=== PATIENT | female | born 1940 | race Caucasian/White ===

== ENCOUNTER 2020-10-25 15:16 | Outpatient (REF) | payer MEDICARE, SELFPAY ==
[2020-10-25 15:49] LABS: MANUAL DIFF FLAG NO
[2020-10-25 15:53] LABS: Basophils Percent Auto 0.9 % (0-2); Eosinophils Absolute Auto 0.1 X10*3/uL (0.0-0.4); Eosinophils Percent Auto 1.9 % (0-4); Hematocrit 40.2 % (37-47); Hemoglobin 12.6 g/dl (12.0-16.0); Imm Gran Abs Auto 0.01 X10*3/uL (0.00-0.03); Imm Gran Pct Auto 0.2 % (0.0-0.4); Lymphocytes Percent Auto 20.4 % (20-40); Mean Corpuscular HGB Conc 31.3 g/dl (31.0-35.0); Mean Corpuscular Hemoglobin 31.1 pg (27.0-33.0); Mean Corpuscular Volume 99.3 fL (80-98); Mean Platelet Volume 10.5 fL (9.4-12.3); Monocytes Absolute Auto 0.3 X10*3/uL (0.1-1.2); Monocytes Percent Auto 7.1 % (2-11); Neutrophils Absolute Auto 3.2 X10*3/uL (2.0-8.3); Neutrophils Percent Auto 69.5 % (45-73); Platelet Count 192 X10*3/uL (160-400); Red Blood Count 4.05 X10*6/uL (4.20-5.50); Red Cell Distribution Width 12.8 % (11.0-16.0); White Blood Count 4.7 X10*3/uL (4.8-10.8)
== END 2020-10-25 15:17 | disposition home or self-care (01) ==
LOC: HO.LAB 15:16
PROVIDERS: PCP Family Medicine; Visit Provider Family Medicine
DX: K59.00 Constipation, unspecified (principal); R19.5 Other fecal abnormalities
CPT/HCPCS: 36415; 82378; 85025

== ENCOUNTER 2020-10-26 09:46 | Outpatient (REF) | payer MEDICARE, MEDICAID, SELFPAY ==
--- NOTE | ~2020-10-26 | CT_ITS ---
EXAMINATION: CT ABDOMEN AND PELVIS WITHOUT CONTRAST CLINICAL INFORMATION: 3 week history of constipation and rectal pressure. Rule out obstruction. COMPARISON: Previous CT of the abdomen and pelvis June 2015 TECHNIQUE: Multidetector volumetric imaging was performed from the superior aspect of the liver through the pubic symphysis. Sagittal and coronal reformatted images were obtained on the technologist's workstation. This CT examination was performed using dose optimization techniques as appropriate, variously including the following: *Automated exposure control *Adjustment of mA and/or kV according to patient size (this includes techniques or standardized protocols for targeted exams where dose is matched to indication/reason for exam; i.e. extremities or head) *Use of iterative reconstruction technique DLP: 238 mGy-cm FINDINGS: LUNG BASES: The visualized lung bases are clear. There is a small pericardial effusion. LIVER, GALLBLADDER, AND BILIARY TREE: The liver is normal in size, shape, and attenuation. No focal hepatic lesion or biliary ductal dilatation is present. The gallbladder is 9 identified with certainty. The gallbladder may be contracted axial image 35 series 3. There is no biliary duct dilatation. PANCREAS: Unremarkable. SPLEEN: Unremarkable. ADRENAL GLANDS: Unremarkable. KIDNEYS AND URETERS: As a small stone seen in the lower pole of the right kidney. There is question of a small stone versus cortical calcification in the lower pole the left kidney. There is mild dilatation of both renal pelvises. No calyceal or ureteral dilatation is seen. This is similar to previous exam. BLADDER: Not optimally distended and not evaluated. GASTROINTESTINAL TRACT: There is a large amount of stool seen in the colon suggestive of constipation. No dilated loops of bowel to suggest obstruction are seen. There is diverticulosis of the distal colon. No evidence of diverticulitis is seen. ABDOMINAL WALL: No significant hernia is appreciated. LYMPH NODES: Normal. VASCULAR: Unremarkable. PELVIC VISCERA: Unremarkable. OSSEOUS STRUCTURES: There is spondylolisthesis and degenerative disc disease at L5-S1 that is stable. There is a question of left-sided L5 pars defect. There is degenerative disc disease at L3-L4 and L4-L5. CT/CT abdomen pelvis wo con IMPRESSION: Severe constipation. Diverticulosis of the colon. No evidence of diverticulitis. Small right renal stone.
== END 2020-10-26 09:47 | disposition home or self-care (01) ==
LOC: HO.CT 09:46
PROVIDERS: PCP Family Medicine; Visit Provider Family Medicine
DX: R19.7 Diarrhea, unspecified (principal); R63.0 Anorexia
CPT/HCPCS: 74176

== ENCOUNTER → 2021-04-08 11:22 | Outpatient (REF) | payer MEDICARE, MEDICAID, SELFPAY ==
--- NOTE | 2021-04-08 11:29 | HM_ITS ---
Conclusion: 1. Baseline numbers normal sinus rhythm with average heart rate 60 beats per minute. 2. No significant pauses noted 3. Frequent short runs of supra ventricle tachycardia with longest episode of 15 beats 4. Total of 4500 to PACs accounting for 1.8% of total burden account for occasional PACs 5. No patient reported events MTDD
== END ==
LOC: HO.CARD 11:22
PROVIDERS: Visit Provider Family Medicine
DX: R00.2 Palpitations (principal)
CPT/HCPCS: 93242

== ENCOUNTER 2021-10-20 12:48 | Emergency (ER) | payer MEDICARE, MEDICAID, SELFPAY ==
--- NOTE | ~2021-10-20 | XR_ITS ---
EXAMINATION: XR CHEST CLINICAL INFORMATION: SOB. COMPARISON: None TECHNIQUE: Frontal view of the chest was obtained. FINDINGS: The lungs are well-expanded and clear of acute process. There is minimal atelectatic changes or scarring left lung base. The heart size and pulmonary vascularity is normal. No gross bony abnormality seen. XR/XR chest 1V IMPRESSION: Unremarkable chest exam.
[2021-10-20 12:55] VITALS: BP 105/38; BP 110/68; PULSE 62; PULSE 74; RESP 18; TEMP 38.4; O2SAT 96; O2SAT 97; BMI 17.5
[2021-10-20 13:01] VITALS: O2SAT 96
[2021-10-20 13:11] VITALS: BP 105/38; PULSE 67; RESP 16; TEMP 38.4; O2SAT 95
--- NOTE | 2021-10-20 13:20 | PC.NURSE ---
patient a&ox3, vss, covid/flu swabs obtained, will continue to monitor.
[2021-10-20 13:48] LABS: Influenza A Positive (Negative); Influenza B2 Negative (Negative)
[2021-10-20 13:49] LABS: COVID-19 Test Negative (Negative); IDNOW Serial# 16C4AD1C
[2021-10-20 14:00] VITALS: BP 108/52; PULSE 66; RESP 16; TEMP 38.8; O2SAT 95
--- NOTE | 2021-10-20 14:41 | ED_ITS ---
HPI - General Adult General Chief complaint: Upper Respiratory Symptoms Stated complaint: COUGH,HEADACHE FROM [facility] Time Seen by Provider: 10/20/21 14:00 Source: patient Mode of arrival: ambulatory Limitations: no limitations History of Present Illness HPI narrative: 80-year-old female came in with 1 day symptoms of sore throat, mild headache, cough, subjective fever, generalized body ache. Patient exposed to sick contact at work that was diagnosed with flu. Related Data Previous Rx's Medication Instructions Recorded oseltamivir 75 mg capsule (Tamiflu) 75 mg PO BID 5 Days #10 cap 10/20/21 Allergies Allergy/AdvReac Type Severity Reaction Status Date / Time clams AdvReac Intermediate VOMITING Unverified 02/26/20 17:05 OYSTERS AdvReac Intermediate VOMITING Uncoded 02/26/20 17:05 SUNMILK PRODUCTS AdvReac Intermediate VOMITTING Uncoded 02/26/20 17:05 Review of Systems Review of Systems: All other systems are reviewed and are negative Constitutional: Reports as per HPI and Reports no additional constitutional complaints Eyes: Reports as per HPI and Reports no additional eye complaints Reports system reviewed and no additional complaints, except as documented Cardiovascular: Reports as per HPI and Reports no additional cardiovascular complaints Respiratory: Reports as per HPI and Reports no additional respiratory complaints Gastrointestinal: Reports as per HPI and Reports no additional gastrointestinal complaints Genitourinary: Reports no additional female genitourinary complaints Musculoskeletal: Reports no additional musculoskeletal complaints Skin/Breast: Reports system reviewed and no additional complaints, except as docu Psychiatric: Reports no additional psychiatric complaints Endocrine: Reports no additional endocrine complaints Hematologic/Lymphatic: Reports no additional hematologic/lymphatic complaints Allergic/Immunologic: Reports no additional allergic/immunologic complaints Reports system reviewed and no additional complaints, except as documented and Reports Abnormal speech present [facility] Social History Social History Alcohol intake: never Patient Tobacco Use Status: Never used Tobacco Use of substances other than those prescribed or required for medical reasons: No Advance Directives: No Advance Directives Information Provided: No Physical Exam ED Vital Signs: Vital Signs - 24 hr 10/20/21 12:55 10/20/21 13:01 10/20/21 13:11 Temperature 101.2 F H 101.2 F H Pulse Rate 74 67 Respiratory Rate 18 16 Blood Pressure 105/38 L 105/38 L Pulse Oximetry 96 96 95 10/20/21 14:00 10/20/21 15:51 Temperature 101.8 F H 99.9 F Pulse Rate 66 67 Respiratory Rate 16 18 Blood Pressure 108/52 L 93/44 L Pulse Oximetry 95 93 BMI result Body Mass Index 17.5 Vital signs have been reviewed as appeared to be correct. Blood pressure normal (patient normally runs low blood pressure) Heart rate normal. Respiration rate normal. Temperature elevated. Oxygen saturation normal. Appearance: Alert. Oriented X3. No acute distress. Head: Normal external exam. Normocephalic. Atraumatic. No Chavez signs noted. No raccoon eyes noted Eyes: PERRLA. EOMI. Conjunctiva and sclera normal. Eyelids normal. ENT: TM's Normal. Pharynx normal. Uvula midline. Moist mucous membranes. No trismus noted. No drooling noted. No muffled voice noted. Neck: Normal inspection. Neck supple. FROM. No adenopathy. Thyroid Normal. No meningeal signs. No neck mass noted. CVS: Normal heart rate and rhythm. Heart sound normal. No murmurs noted. Pulses normal throughout. Respiratory: No respiratory distress. Painless inspiration. Breath sounds normal. No wheezes/rales/rhonchi noted. Chest nontender. No accessory muscle usage noted or decreased air movement noted. Abdomen: Soft and nontender. Bowel sounds normal in all 4 quadrants. No distention noted. No organomegaly noted. No visible injury noted. Back: No CVA tenderness. Full range of motion noted. Skin: Skin warm and dry. Normal skin color. Normal skin turgor. No rashes/lesions/lacerations noted. Extremities: No lower extremity edema. Extremities exhibit normal range of motion. Extremities nontender. Neuro: Oriented X 3. Cranial nerve exam: II-XII are grossly intact No motor deficit. No sensory deficit. Reflexes normal. Course Course Course Narrative: Assessment and plan. 80-year-old female came in with headache, sore throat, coughing, exposure to sick contact with flu A. Patient tested positive for flu a, chest x-ray is unremarkable, symptoms is 24 hours ago will start the patient on Tamiflu, bedrest, social distancing, face mask, self-isolation. Medical Decision Making Lab Data Lab results reviewed: Yes I reviewed the patient's lab results. Labs: Lab Results 10/20/21 10/20/21 Range/Units 13:15 13:15 COVID-19 (ANNEMARIE) Negative (Negative) COVID-19 Clin Com See Note Influenza Type A (IVONNE) Positive A (Negative) Influenza Type B (IVONNE) Negative (Negative) Influenza A & B Note See Note Imaging Data Chest x-ray: Attestation: I personally reviewed and interpreted this imaging study as follows: Radiologist's impression: No acute pathology. Discharge Plan Discharge Clinical Impression: Influenza A Patient Disposition: Home, Self-Care Instructions: Influenza (ED) Additional Instructions: Drink plenty of fluids Prescriptions: New oseltamivir [Tamiflu] 75 mg capsule 75 mg PO BID 5 Days Qty: 10 0RF Referrals: Nicki Heredia MD [Primary Care Provider] -
[2021-10-20] MEDS: Acetaminophen 325 MG TABLET 650 MG PO (14:46)
--- NOTE | 2021-10-20 14:47 | PC.NURSE ---
pt a&ox3, vss - temp 101.8, c/o sore throat/epigatric discomfort. medicated per provider order. no new orders at this time.
[2021-10-20 15:51] VITALS: BP 93/44; PULSE 67; RESP 18; TEMP 37.7; O2SAT 93
[2021-10-20 16:06] VITALS: TEMP 37.6
== END 2021-10-20 16:51 | disposition home or self-care (01) ==
PROVIDERS: Emergency Provider Emergency Medicine; PCP Internal Medicine
DX: J10.1 Influenza due to other identified influenza virus with other respiratory manifestations (principal); Z20.822 Contact with and (suspected) exposure to COVID-19
CPT/HCPCS: 71045; 87502; 87635; 99283; 99284

== ENCOUNTER 2024-04-23 09:46 | Outpatient (REF) | payer OTHER, SELFPAY ==
[2024-04-23 11:30] LABS: Blood Urea Nitrogen 14 mg/dL (9-16); Estimated Glomerular Filt Rate 55
== END 2024-04-23 09:47 | disposition home or self-care (01) ==
LOC: HO.LAB 09:46
PROVIDERS: PCP Internal Medicine; Visit Provider Otolaryngology
DX: R13.10 Dysphagia, unspecified (principal)
CPT/HCPCS: 36415; 82565; 84520

== ENCOUNTER 2024-05-07 13:58 | Outpatient (REF) | payer OTHER, SELFPAY ==
--- NOTE | ~2024-05-07 | FL_ITS ---
EXAMINATION: Modified Barium Swallow CLINICAL INFORMATION: Dysphagia COMPARISON: None TECHNIQUE: Modified barium swallow was performed under lateral fluoroscopy with patient in standing position. Barium mixed with solids and liquids of different consistencies was administered by the speech pathologist. Examination was recorded in the fluoroscopy suite. FINDINGS: Laryngeal penetration was seen with multiple consistencies of barium. No aspiration was observed. FLUOROSCOPY TIME: 1 minute 54 seconds Number of Spot Images: N/A DOSE AREA PRODUCT: 378.6 uGy-m2 (microgray-meter squared) FL/FL Modified Barium Swallow IMPRESSION: 1. Laryngeal penetration was seen with multiple consistencies of barium. No aspiration was observed. Refer to the speech therapy report for further clarification This procedure was performed by Pierce Aguila PA-C, and supervised by Dr. Mars Electronically signed by: Moises Mars MD 05/14/2024 03:22 PM [facility] [place]
--- NOTE | 2024-05-07 15:48 | MHC.SL.IMP ---
Date of Plan of Treatment: 05/07/24 Onset of Symptoms/Illness: 05/01/24 Date Treatment Started: 05/07/24 Admitting Diagnosis: Dysphagia Primary Speech & Language Diagnosis: R13.13 Pharyngeal Phase Dysphagia Reason for Today's Visit: 23244 Modified Barium Swallow Study Pre-evaluation Dietary Consistencies: Regular Pre-evaluation Liquid Consistency: Thin Pre-evaluation Medication Administration: Whole with Liquid Medical History: Modified Barium Swallow Study Fluoroscopic Evaluation of Swallowing Function CPT Code 24341 Evaluation Year: 2023 Reason for Study: ?dysphagia, question of aspiration, pls evaluate and treat? Referring Physician: Dung STILL Evaluating Clinician: Flores Isaacs MA, CCC-AIRCRAFT DESIGNER Study Number: 1 Patient Name: Mattie Doan Status: Outpatient, Ambulatory Age: 83 Gender: Female Medical History Chronic constipation, GERD, palpitations, precordial pain, appendectomy, back surgery Current (pre-evaluation) Intake/Diet: Route: PO Diet Grade: Regular Liquid Consistencies: Thin Pre-Study Functional Oral Intake Scale (FOIS): 7- Total oral intake with no restrictions Pain: None reported at time of study SUBJECTIVE: Patient is an 83 year old female referred for a modified barium swallow study by Dung STILL from Gastroenterology on [facility] in [place]. Patient reports she had a barium swallow x-ray which was incomplete because she ?coughed on the liquid.? She was sent by her G.I. to further evaluate for concern of aspiration. Patient denies having any trouble swallowing and says that she eats an unmodified diet. Food and Liquid Trials: Oral Impairment: Lip Closure: Did not test Oral Impairment: Tongue Control During Bolus Hold: 0=Cohesive bolus between tongue to palatal seal Oral Impairment: Bolus Preparation/Mastication: 0=Timely and efficient chewing and mashing Oral Impairment: Bolus Transport/Lingual Motion: 1= Delayed initiation of tongue motion Oral Impairment: Oral Residue: 1=Trace residue lining oral structures Oral Impairment:Initiation of Pharyngeal Swallow: 3=Bolus head in pyriforms Pharyngeal Impairment: Soft Palate Elevation: 0=No bolus between soft palate (SP)/pharyngeal wall (PW) Pharyngeal Impairment: Laryngeal Elevation: 1=Partial thyroid cartilage/arytenoids to epiglottic petiole movement Pharyngeal Impairment: Anterior Hyoid Excursion: 1=Partial anterior movement Pharyngeal Impairment: Epiglottic Movement: 1=Partial inversion Pharyngeal Impairment: Laryngeal Vestibular Closure:: 1=Incomplete: narrow column air/contrast in laryngeal vestibule Pharyngeal Impairment: Pharyngeal Stripping Wave: 1=Present: diminished Pharyngeal Impairment: Pharyngeal Contraction: Did not test Pharyngeal Impairment: Pharyngoesophageal Segment Openin=Partial distention/partial duration: partial obstruction of flow Pharyngeal Impairment: Tongue Base (TB) Retraction: 2=Narrow column of contrast/air between TB and posterior PW Pharyngeal Impairment: Pharyngeal Residue: 2=Collection of residue within or on pharyngeal structures Pharyngeal Impairment: Esophageal Clearance Upright Position: Did not test Impressions and Recommendations Clinical Observations: OBJECTIVE: Time-out: performed at 15:00 Evaluation Start: 14:30; Stop: 14:35 Patient Positioning: Standing Viewing Planes: LATERAL ONLY Contrast: MBSImP? Standardized Protocol using commercially prepared, standardized Barium viscosities, including: Varibar? THIN LIQUID (40% w/v, <15 cps) , Varibar? NECTAR (40% w/v, <150-450 cps) , Varibar? THIN HONEY (40% w/v, <800-1800 cps) , Varibar? PUDDING (40% w/v, <0683-3270 cps) , 1/2 Shortbread Cookie (1 x1 x.25 ) [facility]: [id number] [facility] Results: Lip closure for intraoral bolus containment could not be assessed due to logistical reasons not related to physiologic impairment. Tongue control during bolus hold maintained a cohesive bolus held between tongue to palate seal. Bolus preparation and mastication resulted in timely and efficient chewing and mashing. Bolus transport/lingual motion demonstrated delayed initiation of tongue motion. Oral residue was a trace, lining oral structures. Initiation of the pharyngeal swallow occurred when the bolus head was in the pyriform sinuses. Soft palate elevation resulted in no bolus between the soft palate and the pharyngeal wall. Laryngeal elevation was decreased, with partial superior movement of the thyroid cartilage/partial approximation of the arytenoids to the epiglottic petiole. Anterior hyoid excursion demonstrated partial anterior movement. Epiglottic movement resulted in partial inversion. Laryngeal vestibular closure was incomplete, with a narrow column of air/contrast noted within the laryngeal vestibule at the height of the swallow. Pharyngeal stripping wave was present, but diminished. Pharyngeal contraction could not be determined due to logistical reasons not related to physiologic impairment. Pharyngoesophageal segment opening demonstrated partial distension/partial duration, with partial obstruction of bolus flow. Tongue base retraction allowed a narrow column of contrast or air between the retracted tongue base and the posterior pharyngeal wall. Pharyngeal residue was a collection of residue within or on pharyngeal structures. Esophageal clearance in the upright position could not be assessed due to logistical reasons not related to physiologic impairment. Oral Impairment Score: 4 (absence of score, component 1) Pharyngeal Impairment Score: 10 (absence of score, component 13) Esophageal Impairment Score: --- (absence of score, component 17) Laryngeal Penetration and Aspiration: Neither penetration nor aspiration was observed in today's study with Cookie, Pudding-thick, Honey-thick. Penetration was observed in today's study. [place]-thick, Thin Contrast entered the airway, remained above the vocal folds, and were ejected from the airway. ASSESSMENT: This exam was conducted by the radiologist and the speech pathologist. Patient was standing for lateral view only and trialed the following consistencies: thin (individual cup sips), nectar thick (individual cup sips), honey thick (individual cup sips), puree, and regular solid. Oral phase was mostly unremarkable. Patient demonstrated good tongue control with no premature posterior escape. Mastication was timely and efficient. Posterior lingual motion was mildly delayed. There was trace residue on the tongue post swallow, which cleared with subsequent swallows. Pharyngeal swallow trigger was delayed, initiated as the bolus head reached the pyriform sinuses. No evidence of nasopharyngeal reflux. Note partial laryngeal elevation and partial epiglottic inversion. There was penetration of trace liquid above the vocal folds with trials of thin and nectar thick liquid consistently. Patient did not elicit a spontaneous protective response. She cleared her throat as instructed by the speech pathologist, and was able to clear most contrast from the laryngeal vestibule. No subsequent aspiration seen. No evidence of penetration or aspiration with trials of honey thick liquid, puree, and regular solid. There was mild retention in the valleculae and on the posterior pharyngeal wall with trials of liquid. Complete clearance seen with solids. Note partial distention and partial duration through the pharyngoesophageal segment opening, contributing to pharyngeal retention. Patient was able to mostly clear retention with dry swallows. Liquid Intake Recommendation: Thin Liquid Intake Strategies: Small Sips, Throat Clear, No Straws Dietary Recommendations: Regular Medication Administration: Whole with Puree Please contact the pharmacy regarding appropriate crushable or liquid drug formulations that are available whenever modified delivery is recommended. Compensatory Strategies Recommended: Sitting Upright (90 deg), Double Swallow, No Straw, Small Bites and Sips, Rate of Ingestion Change, Avoid Specific Foods Recommended Treatments: Compens. Strategy Educat. Recommendation for Speech Therapy: Outpatient Speech Therapy Text Comment: Intake Recommendations: Route: PO Diet Grade: Regular Liquid Consistencies: Thin w/ Throat Clear Strategy Post-Study Functional Oral Intake Scale (FOIS): 6- Total oral intake with no special preparation, but must avoid specific foods or liquid items This exam revealed mild pharyngeal dysphagia, characterized by delayed swallow trigger, partial epiglottic inversion, and incomplete laryngeal vestibular closure. Penetration consistently seen with thin and nectar thick consistencies. Patient did not elicit a spontaneous protective reflex, but was able to clear most contrast with cued throat clearing. No evidence of aspiration with this exam. There was mild residue in the oral and pharyngeal cavities, which mostly cleared with dry swallows. Patient is recommended 1-2 f/u visits with a speech pathologist for further education of MBSS results and recommended strategies. Suggested Referrals: The patient might benefit from a referral to: Gastroenterology Indication for Referral: Distention at [facility] Otolaryngology Indication for Referral: Patient presents w/ weak voice, reports ?irritation? in the back of her throat Therapy Recommendations: Patient is recommended REGULAR solids and THIN liquids w/ Throat Clear Strategy between sips, pills WHOLE or CRUSHED in PUREE. The following strategies are recommended to maximize safety: -take small sips, one sip at a time -avoid quick, sequential sipping -avoid the use of straws -clear throat after each sip and swallow again -take small bites of food -chew food well -dry swallow between bites to promote clearance -maintain upright position during PO intake and for at least 30-45 minutes afterwards -avoid mixed textures Patient is recommended 1-2 f/u visits for further education. The following compensatory strategies and/or therapeutic exercises will be part of the upcoming therapy/management plan: Additional Swallow(s) per Bolus Throat Clear Prognosis for Improvement: The prognosis for the patient to meet nutritional needs by mouth is fair based on degree of impairment, stimulability for treatment, level of motivation. News Cameraman Goals: ? The patient and/or family will participate in further education for swallowing goals. Short Term Goals: ? Guidelines - The patient will comply with/recall the following guidelines/strategies 100% of the time with no cuing: Bolus Volume Change, Rate of Ingestion Change, Additional Swallow(s) per Bolus, Throat Clear, No Straws. ? Education - The patient will verbalize/demonstrate understanding of the results of this evaluation, the above recommendations, and the swallowing guidelines. Frequency/Duration: 1-2 f/u Date Range for Service Requested: Timeline to reassess: PRN Clinician - Supplemental, Miscellaneous Communication: It is important to note MBSS objective studies are snapshots in time and Patient function might vary with factors such as time of day or concomitant medical conditions. For this reason, the final treatment plan for this patient should rest with their medical care team. Additional recommendations should be considered with the totality of the Patient in mind. Thank for the opportunity to participate in the care of this patient. If you have any questions about the content of this report, please contact the [facility]. Education: Education regarding findings from today's study and plans for therapy were provided to Patient only through Verbal Instruction. Understanding was expressed by the Patient only. Smoking Pipes Cleaner Clinician/Clinical Fellow: No Supervisory Statement: N/A Speech Language Pathologist: Flores Isaacs M.A., [facility]-AIRCRAFT DESIGNER
== END 2024-05-07 13:59 | disposition home or self-care (01) ==
LOC: HO.XRAY 13:58
PROVIDERS: PCP Internal Medicine; Visit Provider Physician Assistant Surgical
DX: R13.10 Dysphagia, unspecified (principal)
CPT/HCPCS: 74230; 92611

== ENCOUNTER → 2024-05-07 14:05 | Outpatient (BNV) | payer OTHER, SELFPAY | PROVIDERS: PCP Internal Medicine; Visit Provider Physician Assistant Surgical | DX: R13.10 Dysphagia, unspecified (principal) | CPT/HCPCS: 74230 ==

== ENCOUNTER 2024-05-27 09:28 | Outpatient (REF) | payer OTHER, SELFPAY ==
--- OUTSIDE RECORDS SUMMARY | 2024-05-27 09:32 | XMS_ITS | Patient Health Record ---
Author Organization [facility] Address [address] [place] [address] Care Team Providers Care Manager Express Name Role Phone Danial Puente MD Primary Care Provider Unavailab Edgardo Salguero Unavailable [phone] Allergies Allergen (clinical drug ingredient) Drug/Non Drug Allergy documented on EMR Reaction Allergy Type Onset Date Status Anesthesia (uncoded) Unknown Allergy Active General/Spinal (uncoded) Unknown Allergy Active Shrimp Flavor Unknown Drug Allergy Act pal shellfish Unknown Drug Allergy Active Reason For Referral No Information Medications Medication SIG (Take, Route, Frequency, Duration) Notes Start Date End Date Status Vitamin D 200 UNIT as directed Orally Active Calcium + D 600 MG-UNIT 1 tablet with fo od Orally Once a day for 30 day(s) Active Aspirin Active Tylenol 325 MG 1 tablet as needed Orally every 6 hrs for 5 days 05/12/2013 Unknown Tylenol 325 MG 1 tablet as needed Orally every 6 hrs for 05 days 05/12/2013 Active Lumigan Once a day Active Biotin Active Calcium + D 600 MG-UNIT 1 tablet with fo od Orally Once a day for 30 day(s) Active Meloxicam Not-Taking Azopt 1 % 1 drop into affected eye Ophthalmic Twice a day Active Dorzolamide HCl 2 % 1 drop into affected eye Ophthalmic Three times a day Active Latanoprost 0.005 % 1 drop into affected eye in the evening Ophthalmic Once a day Active Meloxicam 15 MG 1 tablet on the tong ue and allow to dissolve Orally Once a day for 30 day(s) Active Azopt 1 % 1 drop into affected eye Ophthalmic Twice a day Active Restasis 0.05 % 1 drop into affected eye Ophthalmic Twice a day Active Lumigan Once a day Active Calcium + D 600 MG-UNIT 1 tablet with fo od Orally Once a day for 30 day(s) Active Vitamin B12 Active Tylenol 325 MG 1 tablet as needed Orally every 6 hrs for 5 days 05/12/2013 Active Azopt 1 % 1 drop into affected eye Ophthalmic Twice a day Not-Takin g Vitamin D 200 UNIT as directed Orally Active Lumigan Once a day Unknown Vitamin D 200 UNIT as directed Orally Unknown Immunizations Vaccine Route Administration Date Status Comme nts COVID-19 Moderna Vaccine Unknown 07/21/2020 Administere d #2 08/20/20 Social History Tobacco use other than smoking: Question Answer Notes Are you an other tobacco user? No Plan Of Treatment Pending Test Test Name Order Date X ray : Foot, left 3V 07/08/2012 X ray : Foot, left 3V 09/02/2012 X ray : Foot, left 3V 04/23/2013 Insurance Providers Payer Name Payer Address Payer Phone Subscriber Number Group Number Insured Name Patient Relationship to Insured Coverage Start Date Coverage End Date [facility] [id number] [address] [address] [place] [id number] [facility] [place]ie Self - patient is the insured Medical (General) History Medical History History ICD Code back, hip, knee pain glaucoma measles mumps chicken pox Arthritis Cataracts Diverticulitis Osteoporosis Surgical History Surgery Date(Month/Year) appendectomy 11/07/1954 laminectomy 05/15/95 laproscopy-knee 12/10/96 hemorrhoidectomy 02/23/11 back 1994 cataract surgery knee surgery, left 1996 glaucoma
[2024-05-27 10:32] LABS: Blood Urea Nitrogen 12 mg/dL (9-16); Estimated Glomerular Filt Rate 59
== END 2024-05-27 09:29 | disposition home or self-care (01) ==
LOC: HO.LAB 09:28
PROVIDERS: Visit Provider Otolaryngology
DX: R13.10 Dysphagia, unspecified (principal)
CPT/HCPCS: 36415; 82565; 84520

== ENCOUNTER 2024-06-09 09:49 | Outpatient (RCR) | payer OTHER, SELFPAY | END 2025-06-09 14:29 | disposition home or self-care (01) | LOC: HO.SH 09:49 | PROVIDERS: Visit Provider Physician Assistant Surgical | DX: R13.10 Dysphagia, unspecified (principal) | CPT/HCPCS: 92526 ==

== ENCOUNTER 2024-06-25 14:50 | Outpatient (REF) | payer OTHER, SELFPAY ==
--- NOTE | ~2024-06-25 | CT_ITS ---
CLINICAL HISTORY: DYSPHAGIA CT soft tissue neck with contrast Comparison: None Findings: The visualized intracranial contents are unremarkable. No prevertebral fluid. Epiglottis is within normal limits. Pharyngeal mucosal space and parapharyngeal fat are normal. Salivary glands are unremarkable. No sialoliths. No suspicious thyroid nodules. Oral cavity is somewhat obscured by dental hardware. No discrete mass or suspicious enhancement identified. Visualized lung apices are clear. No acute fracture or dislocation. IMPRESSION: No acute findings. This document has been electronically signed by: Maddy Johns MD on 06/26/2024 08:47:39
[2024-06-25] MEDS: iohexoL 350 MG/ML 100 ML INFUS..BTL IV (16:25)
== END 2024-06-25 14:51 | disposition home or self-care (01) ==
LOC: HO.CT 14:50
PROVIDERS: PCP Internal Medicine; Visit Provider Otolaryngology
DX: R13.10 Dysphagia, unspecified (principal)
CPT/HCPCS: 70491; Q9967

== ENCOUNTER → 2024-06-25 14:52 | Outpatient (BNV) | payer OTHER, SELFPAY | PROVIDERS: PCP Internal Medicine; Visit Provider Radiology Diagnostic Radiology | DX: R13.10 Dysphagia, unspecified (principal) | CPT/HCPCS: 70491 ==